=== PATIENT | female | born 1950 | race Caucasian/White ===

== ENCOUNTER 2023-08-16 16:02 | Emergency (ER) | payer MEDICARE, BC ==
[~2023-08-16] VITALS: Ht 160 cm; Wt 58.4 kg
[2023-08-16 19:56] VITALS: TEMP 98.7
--- NOTE | 2023-08-16 20:17 | NUR ---
Patient to CT
[2023-08-16 21:20] LABS: BASOPHILS % (AUTO) 0.6 % (0-1); EOSINOPHILS # (AUTO) 0.1 X10'3 (0-0.9); EOSINOPHILS % (AUTO) 1.4 % (0-6); HEMATOCRIT 37.9 % (35.0-45.0); HEMOGLOBIN 13.2 g/dl (12.0-16.0); LYMPHOCYTES # (AUTO) 2.4 X10'3 (1.1-4.8); LYMPHOCYTES % (AUTO) 35.2 % (21-51); MEAN CORPUSCULAR HGB CONC 34.8 g/dL (33.0-36.5); MEAN PLATELET VOLUME 8.5 FL (7.4-10.4); MONOCYTES # (AUTO) 0.7 X10'3 (0-0.9); MONOCYTES % (AUTO) 10.3 % (2-12); NEUTROPHILS # (AUTO) 3.6 X10'3 (1.8-7.7); NEUTROPHILS % (AUTO) 52.5 % (42-75); PLATELET COUNT 227 X10'3 (140-440); RED BLOOD COUNT 4.26 X10'6 (4.20-5.60); RED CELL DISTRIBUTION WIDTH 13.3 % (11.5-14.5); WHITE BLOOD COUNT 6.8 X10'3 (4.5-11.0)
[2023-08-16 21:24] LABS: ALANINE AMINOTRANSFERASE 28 U/L (12-78); ALBUMIN/GLOBULIN RATIO 1.1 (1.1-1.5); ALKALINE PHOSPHATASE 89 IU/L (46-116); ANION GAP 9 (8-16); ASPARTATE AMINO TRANSFERASE 25 U/L (10-37); BILIRUBIN,TOTAL 0.6 MG/DL (0.1-1.0); BLOOD UREA NITROGEN 13 MG/DL (7-18); BUN/CREATININE RATIO 16.5 (10.0-20.0); CALCIUM 9.4 MG/DL (8.5-10.1); CHLORIDE 105 MMOL/L (99-107); CREATININE 0.79 MG/DL (0.40-0.90); GLUCOSE 80 MG/DL (70-104); POTASSIUM 3.8 MMOL/L (3.5-5.1); SODIUM 138 MMOL/L (135-145); TOTAL CARBON DIOXIDE 23.8 MMOL/L (24-32); TOTAL PROTEIN 7.8 G/DL (6.4-8.2); eCRCL 52 ML/MIN; eGFR 71 ML/MIN
[2023-08-16 21:31] LABS: PRO BRAIN NATRIURETIC PEPTIDE 176 PG/ML (0-125)
[2023-08-16 21:55] VITALS: BP 156/69; PULSE 48; RESP 16; O2SAT 98
--- NOTE | 2023-08-16 22:08 | NUR ---
REVIEWED LVNS ASSESSMENT, AGREE WITH ASSESSMENT.
== END 2023-08-16 21:58 | disposition home or self-care (01) ==
LOC: ER 16:05
DX: I10 Essential (primary) hypertension (principal); Z88.1 Allergy status to other antibiotic agents
CPT/HCPCS: 36415; 70450; 71045; 80053; 83880; 84484; 85025; 99284